=== PATIENT | male | born 2000 | race Two or more races ===

== ENCOUNTER 2023-07-19 15:51 | Emergency (ER) | payer MEDICAID, OTHER ==
[~2023-07-19] VITALS: Ht 182.9 cm; Wt 66.0 kg
[2023-07-19 18:25] VITALS: BP 150/100; PULSE 102; RESP 18; O2SAT 99
== END 2023-07-19 21:04 | disposition home or self-care (01) ==
LOC: EDBD 15:51 → ER 15:51
DX: Z00.00 Encounter for general adult medical examination without abnormal findings (principal)